=== PATIENT | female | born 1985 | race Caucasian/White ===

== ENCOUNTER 2017-11-10 18:32 | Emergency (ER) | payer OTHER ==
[~2017-11-10] VITALS: Ht 160 cm; Wt 70.0 kg
[2017-11-10 18:42] VITALS: BP 144/88; PULSE 103; RESP 18; TEMP 98.8; O2SAT 99
--- NOTE | 2017-11-10 20:56 | PD ---
HPI Chief Complaint: Related Problem Time Seen by Provider: 20:43 Travel History International Travel<30 days: No Contact w/Intl Traveler<30days: No Traveled to known affect area: No History of Present Illness HPI 32-year-old female who underwent in vitro fertilization, who is approximately 6 weeks and 3 days , here for evaluation of abdominal cramping and vaginal bleeding. Symptoms started this evening. Her fertility specialist is in [place]. Initially she noted dark brown spotting. While in triage she reports slightly heavier bleeding. She now has light spotting. She reports that she had an ultrasound on 11/06/17 that showed an IUP. Lower abdominal cramping is 3 out of 10, constant, slightly worse with movements. She has had a history of laparoscopic procedures for endometriosis and ovarian cysts as well as a procedure for a septate uterus and uterine polyp. [facility] Past Medical History Medical History: Denies Significant Hx Diminished Hearing: No Tetanus Vaccination: Unknown Influenza Vaccination: No ?: LMP: 09/08/17 Past Surgical History Genitourinary Surgery: Yes (lap for endometritis, septal uterus) Social History Alcohol Use: No Tobacco Use: No Substance Use: No Allergies-Medications (Allergen,Severity, Reaction): Coded Allergies: No Known Allergies (Unverified , 11/10/17) Review of Systems Except as stated in HPI: all other systems reviewed are Neg Physical Exam Narrative GENERAL: Well-developed, well-nourished, comfortable, no apparent distress. SKIN: Focused skin assessment warm/dry. HEAD: Atraumatic. Normocephalic. EYES: Pupils equal and round. No scleral icterus. No injection or drainage. ENT: Mucous membranes pink and moist. NECK: Trachea midline. No JVD. CARDIOVASCULAR: Regular rate and rhythm. No murmur appreciated. RESPIRATORY: No accessory muscle use. Clear to auscultation. Breath sounds equal bilaterally. GASTROINTESTINAL: Abdomen soft, nondistended. Mild suprapubic tenderness without peritoneal signs. Normal bowel sounds. MUSCULOSKELETAL: No obvious deformities. No clubbing. No cyanosis. No edema. NEUROLOGICAL: Awake and alert. No obvious cranial nerve deficits. Motor grossly within normal limits. Normal speech. PSYCHIATRIC: Appropriate mood and affect; insight and judgment normal. Data Data Last Documented VS Vital Signs Date Time Temp Pulse Resp B/P (MAP) Pulse Ox O2 Delivery O2 Flow Rate FiO2 11/10/17 18:42 98.8 103 18 144/88 (106) 99 Orders Orders Complete Blood Count With Diff (11/10/17 20:52) Type And Screen (11/10/17 20:52) Us Pelvis (Ques Preg/Ectopic) (11/10/17 ) Urinalysis - C+S If Indicated (11/10/17 20:52) Ed Urine Pregnancytest Poc (11/10/17 20:52) Beta Hcg (Quant/Titer) (11/10/17 21:58) Labs Laboratory Tests Test 11/10/17 20:30 11/10/17 21:05 Human Chorionic Gonadotropin, Quant 82793 MIU/ML White Blood Count 16.4 TH/MM3 Red Blood Count 4.37 MIL/MM3 Hemoglobin 13.7 GM/DL Hematocrit 40.6 % Mean Corpuscular Volume 92.8 FL Mean Corpuscular Hemoglobin 31.3 PG Mean Corpuscular Hemoglobin Concent 33.7 % Red Cell Distribution Width 13.5 % Platelet Count 315 TH/MM3 Mean Platelet Volume 9.0 FL Neutrophils (%) (Auto) 74.7 % Lymphocytes (%) (Auto) 16.5 % Monocytes (%) (Auto) 6.6 % Eosinophils (%) (Auto) 1.9 % Basophils (%) (Auto) 0.3 % Neutrophils # (Auto) 12.3 TH/MM3 Lymphocytes # (Auto) 2.7 TH/MM3 Monocytes # (Auto) 1.1 TH/MM3 Eosinophils # (Auto) 0.3 TH/MM3 Basophils # (Auto) 0.1 TH/MM3 CBC Comment DIFF FINAL Differential Comment Urine Color YELLOW Urine Turbidity CLEAR Urine pH 6.5 Urine Specific [place] 1.026 Urine Protein TRACE mg/dL Urine Glucose (UA) NEG mg/dL Urine Ketones NEG mg/dL Urine Occult Blood MOD Urine Nitrite NEG Urine Bilirubin NEG Urine Urobilinogen LESS THAN 2.0 MG/DL Urine Leukocyte Esterase NEG Urine RBC 6 /hpf Urine WBC 2 /hpf Urine Squamous Epithelial Cells 2 /hpf Urine Mucus FEW /lpf Microscopic Urinalysis Comment CULT NOT INDICATED MDM Medical Decision Making Medical Screen Exam Complete: Yes Emergency Medical Condition: Yes Differential Diagnosis First trimester bleeding, threatened , inevitable , ectopic Narrative Course Vital signs reviewed. CBC: WBC 16.4, hemoglobin 13.7, hematocrit 40.6, platelets 315. Beta-hC,000 Blood type is A+. UA shows moderate occult blood, not suggestive of UTI, and no bacteria seen. Pelvic ultrasound: CONCLUSION: 1. Intrauterine with 2 apparent gestational sacs seen. pole and yolk sac seen within one of the gestational sacs. There is heart activity with approximate heart rate of 121 beats per minute. Approximate gestational age of 6 weeks. No pole or yolk sac seen in the second gestational sac. Subchorionic hemorrhage noted. 2. Possible septate uterus. 3. Anterior fundal uterine fibroid. 4. Bilateral ovarian cysts and small hemorrhagic cysts versus endometriomas. Patient was made aware of all findings. She is resting comfortably. She is provided a copy of her pelvic ultrasound report. She will contact her fertility physician tomorrow morning. She is stable for discharge home with outpatient follow-up. Pelvic rest endorsed. She was advised on when to return to the emergency department patient verbalizes understanding and agreement with plan. Diagnosis Primary Impression: First trimester bleeding Referrals: [employer] Assistant 1 day Additional Instructions: Follow-up with your fertility specialist this week. Return to the emergency department for worsening symptoms or any other concerns. Disposition: 01 DISCHARGE HOME Condition: Stable Nas Coker MD Nov 10, 2017 20:56
[2017-11-10 21:37] LABS: AUTOMATED NEUTROPHIL # 12.3 TH/MM3 (1.8-7.7); BASOPHIL # 0.1 TH/MM3 (0-0.2); BASOPHIL % 0.3 % (0.0-2.0); EOSINOPHIL # 0.3 TH/MM3 (0-0.4); EOSINOPHIL % 1.9 % (0.0-4.0); HEMATOCRIT 40.6 % (35.0-46.0); HEMOGLOBIN 13.7 GM/DL (11.6-15.3); LYMPH % 16.5 % (9.0-44.0); LYMPHOCYTE # 2.7 TH/MM3 (1.0-4.8); MEAN CELL VOLUME 92.8 FL (80.0-100.0); MEAN CORPUSCULAR HEMOGLOBIN 31.3 PG (27.0-34.0); MEAN CORPUSCULAR HGB CONC 33.7 % (32.0-36.0); MONO % 6.6 % (0.0-8.0); MONOCYTE # 1.1 TH/MM3 (0-0.9); NEUT % 74.7 % (16.0-70.0); PLATELET COUNT 315 TH/MM3 (150-450); RED BLOOD COUNT 4.37 MIL/MM3 (4.00-5.30); RED CELL DISTRIBUTION WIDTH 13.5 % (11.6-17.2); WHITE BLOOD COUNT 16.4 TH/MM3 (4.0-11.0)
[2017-11-10 21:40] LABS: BILIRUBIN, URINE NEG (NEG); BLOOD, URINE MOD (NEG); GLUCOSE,URINE NEG (NEG); KETONE, URINE NEG (NEG); MUCUS URINE FEW /lpf (OCC); NITRITE,URINE NEG (NEG); PH, URINE 6.5 (5.0-8.5); SQUAMOUS EPITHELIAL CELL URINE 2 /hpf (0-5); URINE COLOR YELLOW (YELLW/STRAW); URINE LEUKOCYTE ESTERASE NEG (NEG)
--- NOTE | 2017-11-10 23:47 | RADRPT ---
EXAM DATE/TIME: 11/10/2017 22:20 [facility] COMPARISON: No previous studies available for comparison. INDICATIONS : Cramping and vaginal spotting. LAB(S): Beta-hC MEDICAL HISTORY : . In vitro fertilization. Septal uterus. Miscarriage x 1. SURGICAL HISTORY : Multiple laparotomies for endometriosis, septated uterus, uterine polyp removal and cyst removal. ENCOUNTER: Initial ACUITY: 1 day PAIN SCORE: 3/10 LOCATION: Bilateral pelvis MEASUREMENTS: UTERUS: 9.2 x 8.0 x 5.8 cm ENDOMETRIAL STRIPE: 19 mm RIGHT OVARY: 4.8 x 3.3 x 2.7 cm LEFT OVARY: 5.5 x 4.0 x 3.3 cm FREE FLUID: No CROWN RUMP LENGTH: 0.6 cm = 6 WKS 3 DAYS FHR: 121 BPM FINDINGS: UTERUS: Possible septate uterus. Gestational sac is identified at the right side of the uterine body/fundus. pole and no sac are seen. Approximate gestational age by mean sac diameter is 5 weeks 4 days an d by crown-rump length is 6 weeks one day. heart activity is identified with approximate heart rate of 121 beats per minute. Adjacent apparent second gestational sac with no seen. Ante rior fundal fibroid is seen measuring 2.8 x 2.3 x 2.6 cm. Subchorionic hemorrhage is seen measuring 3 .7 x 2.1 x 3.0 cm. RIGHT OVARY: Simple right ovarian cyst measuring 3.2 x 1.8 x 1.9 cm. Hemorrhagic cyst or isoechoic solid nodule in the right ovary measuring 2.0 x 1.6 x 1.8 cm. LEFT OVARY: Minimal complex cyst in the left ovary measuring 2.0 x 1.5 x 2.1 cm. Hemorrhagic cyst or solid nodule in the left ovary measuring 1.9 x 1.7 x 2.0 cm. MISCELLANEOUS: No free fluid. CONCLUSION: 1. Intrauterine with 2 apparent gestational sacs seen. pole and yolk sac seen within one of the gestational sacs. There is heart activity with approximate heart rate of 121 b eats per minute. Approximate gestational age of 6 weeks. No pole or yolk sac seen in the second gestational sac. Subchorionic hemorrhage noted. 2. Possible septate uterus. 3. Anterior fundal uterine fibroid. 4. Bilateral ovarian cysts and small hemorrhagic cysts versus endometriomas. Jesus Bautista MD on November 10, 2017 at 23:36 Board Certified Radiologist. This report was verified electronically.
[2017-11-11 00:42] VITALS: BP 121/58; PULSE 86; RESP 14
== END 2017-11-11 00:50 | disposition home or self-care (01) ==
LOC: NEPE 18:32
DX: O20.9 Hemorrhage in early pregnancy, unspecified (principal); O34.81 Maternal care for other abnormalities of pelvic organs, first trimester; D25.9 Leiomyoma of uterus, unspecified; N83.209 Unspecified ovarian cyst, unspecified side; Z3A.01 Less than 8 weeks gestation of pregnancy
CPT/HCPCS: 76700; 81001; 84702; 84703; 85025; 86850; 86900; 86901; 99284

== ENCOUNTER 2017-11-15 12:49 | Emergency (ER) | payer OTHER ==
[~2017-11-15] VITALS: Ht 160 cm; Wt 71.0 kg
[2017-11-15 13:01] VITALS: BP 132/60; PULSE 95; RESP 17; TEMP 98.2; O2SAT 100
[2017-11-15 14:21] LABS: AUTOMATED NEUTROPHIL # 4.9 TH/MM3 (1.8-7.7); BASOPHIL % 0.5 % (0.0-2.0); EOSINOPHIL # 0.1 TH/MM3 (0-0.4); EOSINOPHIL % 1.8 % (0.0-4.0); HEMATOCRIT 37.3 % (35.0-46.0); HEMOGLOBIN 12.6 GM/DL (11.6-15.3); LYMPH % 16.1 % (9.0-44.0); LYMPHOCYTE # 1.2 TH/MM3 (1.0-4.8); MEAN CORPUSCULAR HEMOGLOBIN 31.8 PG (27.0-34.0); MEAN CORPUSCULAR HGB CONC 33.8 % (32.0-36.0); MEAN PLATELET VOLUME 9.1 FL (7.0-11.0); MONO % 15.6 % (0.0-8.0); MONOCYTE # 1.2 TH/MM3 (0-0.9); PLATELET COUNT 240 TH/MM3 (150-450); RED BLOOD COUNT 3.97 MIL/MM3 (4.00-5.30); RED CELL DISTRIBUTION WIDTH 13.1 % (11.6-17.2); WHITE BLOOD COUNT 7.4 TH/MM3 (4.0-11.0)
--- NOTE | 2017-11-15 15:09 | PD ---
HPI Chief Complaint: Related Problem Time Seen by Provider: 15:02 Travel History International Travel<30 days: No Contact w/Intl Traveler<30days: No Traveled to known affect area: No History of Present Illness HPI Patient came in complaining of intermittent vaginal spotting noted. Patient has been in in vitro fertilization and is approximately 7 weeks or so. Denies any actual abdominal cramping. Denies any alleviating or aggravating factors. Patient also denies any associated factors such as fever, rash, headache, visual changes, neck pain, chest pain, back pain, flank pain or abdominal pain at this point. No known drug allergy Only past medical history of endometritis PFSH Past Medical History Diminished Hearing: No Past Surgical History Genitourinary Surgery: Yes (lap for endometritis, septal uterus) Social History Alcohol Use: No Tobacco Use: No Substance Use: No Allergies-Medications (Allergen,Severity, Reaction): Coded Allergies: No Known Allergies (Unverified , 11/10/17) Review of Systems General / Constitutional: No: Fever Eyes: No: Visual changes HENT: No: Headaches Cardiovascular: No: Chest Pain or Discomfort Respiratory: No: Shortness of Breath Gastrointestinal: No: Abdominal Pain Genitourinary: Positive: Vaginal Bleeding Musculoskeletal: No: Pain Skin: No Rash Neurologic: No: Weakness Psychiatric: No: Depression Endocrine: No: Polydipsia Hematologic/Lymphatic: No: Easy Bruising Physical Exam Narrative GENERAL: SKIN: Warm and dry. HEAD: Atraumatic. Normocephalic. EYES: Pupils equal and round. No scleral icterus. No injection or drainage. ENT: No nasal bleeding or discharge. Mucous membranes pink and moist. NECK: Trachea midline. No JVD. CARDIOVASCULAR: Regular rate and rhythm. RESPIRATORY: No accessory muscle use. Clear to auscultation. Breath sounds equal bilaterally. GASTROINTESTINAL: Abdomen soft, non-tender, nondistended. MUSCULOSKELETAL: Extremities without clubbing, cyanosis, or edema. No obvious deformities. NEUROLOGICAL: Awake and alert. No obvious cranial nerve deficits. Motor grossly within normal limits. Five out of 5 muscle strength in the arms and legs. Normal speech. PSYCHIATRIC: Appropriate mood and affect; insight and judgment normal. Data Data Last Documented VS Vital Signs Date Time Temp Pulse Resp B/P (MAP) Pulse Ox O2 Delivery O2 Flow Rate FiO2 11/15/17 13:01 98.2 95 17 132/60 (84) 100 Orders Orders Complete Blood Count With Diff (11/15/17 13:04) Beta Hcg (Quant/Titer) (11/15/17 13:04) Us Pelvis (Ques Preg/Ectopic) (11/15/17 ) Ed Discharge Order (11/15/17 16:54) Labs Laboratory Tests Test 11/15/17 13:55 White Blood Count 7.4 TH/MM3 Red Blood Count 3.97 MIL/MM3 Hemoglobin 12.6 GM/DL Hematocrit 37.3 % Mean Corpuscular Volume 94.0 FL Mean Corpuscular Hemoglobin 31.8 PG Mean Corpuscular Hemoglobin Concent 33.8 % Red Cell Distribution Width 13.1 % Platelet Count 240 TH/MM3 Mean Platelet Volume 9.1 FL Neutrophils (%) (Auto) 66.0 % Lymphocytes (%) (Auto) 16.1 % Monocytes (%) (Auto) 15.6 % Eosinophils (%) (Auto) 1.8 % Basophils (%) (Auto) 0.5 % Neutrophils # (Auto) 4.9 TH/MM3 Lymphocytes # (Auto) 1.2 TH/MM3 Monocytes # (Auto) 1.2 TH/MM3 Eosinophils # (Auto) 0.1 TH/MM3 Basophils # (Auto) 0.0 TH/MM3 CBC Comment DIFF FINAL Differential Comment Human Chorionic Gonadotropin, Quant [id number] MIU/ML MDM Medical Decision Making Medical Screen Exam Complete: Yes Emergency Medical Condition: Yes Medical Record Reviewed: Yes Differential Diagnosis Threatened AB versus incomplete AB versus missed AB versus demise Narrative Course CBC shows no leukocytosis, no anemia, normal platelet count Quantitative hCG is 51,177 Ultrasound shows a IUP with a 7 week 4 day by ultrasound, and present heart sounds at a rate of 1 35 bpm Diagnosis Primary Impression: Threatened AB Patient Instructions: General Instructions, Threatened Miscarriage (ED) Additional Instructions: Advised close follow-up with your [facility] as well as pelvic rest. Disposition: 01 DISCHARGE HOME Condition: Stable Tiago Monson MD Nov 15, 2017 15:09
--- NOTE | 2017-11-15 16:25 | RADRPT ---
EXAM DATE/TIME: 11/15/2017 15:02 [facility] COMPARISON: US PELVIS (QUEST PREG/ECTOPIC), November 10, 2017, 22:20. INDICATIONS : Pelvic pain and bleeding with . LAB(S): Beta-hC,177 MEDICAL HISTORY : . Septate uterus. Endometriosis. SURGICAL HISTORY : Gynecologic surgery for endometriosis, cysts and septate uterus. ENCOUNTER: Subsequent ACUITY: 1 week PAIN SCORE: 2/10 LOCATION: Bilateral pelvis MEASUREMENTS: UTERUS: 9.4 x 5.9 x 8.8 cm ENDOMETRIAL STRIPE: >20 mm RIGHT OVARY: 3.4 x 1.9 x 2.8 cm LEFT OVARY: 6.1 x 3.4 x 3.0 cm FREE FLUID: No CROWN RUMP LENGTH: 0.77 = 6 WKS 5 DAYS FHR: 135 BPM FINDINGS: UTERUS: There is a 7 week 4 day intrauterine gestational sac. pole is present with cardiac activity det ected at 135 beats per minute. A sizable subchorionic hemorrhage is present. RIGHT OVARY: Small simple appearing cysts. LEFT OVARY: Small adjacent simple appearing cysts. MISCELLANEOUS: No free fluid. CONCLUSION: Intrauterine gestation with sizable subchorionic hemorrhage Doug Anton MD on November 15, 2017 at 16:19 Board Certified Radiologist. This report was verified electronically.
== END 2017-11-15 17:37 | disposition home or self-care (01) ==
LOC: NEPD 12:49
DX: O20.0 Threatened abortion (principal); Z3A.01 Less than 8 weeks gestation of pregnancy
CPT/HCPCS: 76700; 84702; 85025; 99284